=== PATIENT | male | born 1980 | race Caucasian/White ===

== ENCOUNTER → 2021-09-12 | Outpatient (CLI) | payer BC, OTHER | LOC: KOH-I 09-05 11:15 | DX: R10.11 Right upper quadrant pain (principal); R10.31 Right lower quadrant pain | CPT/HCPCS: 76700 ==

== ENCOUNTER → 2021-09-26 | Outpatient (CLI) | payer BC, OTHER | LOC: NM 08:59 | DX: R10.11 Right upper quadrant pain (principal); R11.0 Nausea | CPT/HCPCS: 78226; A9537 ==